=== PATIENT | female | born 1950 | race Caucasian/White ===

== ENCOUNTER 2016-08-06 16:00 | Inpatient (IN) | payer MEDICARE, MEDICAID ==
[~2016-08-06] VITALS: Ht 162.6 cm; Wt 119.1 kg
[2016-08-06] VITALS (10 sets, daily range): BP systolic 75–194; RESP 18–24; TEMP 98.2; BMI 47.5
[2016-08-06] MEDS ORDERED: PHARMACY TO DOSE VANCOMYCIN IV SCH (20:10)
[2016-08-06] MEDS ORDERED: PHARMACY TO DOSE ZOSYN IV SCH (20:10)
[2016-08-06] MEDS ORDERED: **NOTE TO NURSE XX SCH (20:36)
[2016-08-06] MEDS ORDERED: VANCOMYCIN 2,500 MG in SODIUM CHLORIDE 0.9% 500 ML IV ONE (21:35)
[2016-08-06] MEDS ORDERED: PIPERACIL/TAZO 3.375GM/50ML 50 ML IV ONE (21:35)
[2016-08-06] MEDS ORDERED: PROPOFOL 100 ML 100 ML IV PRN ×2 (21:45→23:25)
[2016-08-06] MEDS ORDERED: ACETAMINOPHEN 650 MG SUPP RECTAL PRN (23:25)
[2016-08-06] MEDS ORDERED: GLUCAGON 1 MG VIAL IM PRN (23:25)
[2016-08-07] VITALS (39 sets, daily range): BP systolic 64–207; RESP 18–27; TEMP 98.1–98.9; Ht 162.6 cm; Wt 119.1 kg
[2016-08-07] MEDS ORDERED: PIPERACIL/TAZO 2.25GM/50ML 50 ML IV SCH (08:00)
[2016-08-07] MEDS: PIPERACIL/TAZO 2.25GM/50ML 50 ML IV SCH ×2 (08:55→21:08)
[2016-08-07] MEDS: DEXTROSE 50% SYRINGE 50 ML IV PRN ×3 (09:00→12:44)
[2016-08-07] MEDS ORDERED: DUONEB INH PRN (10:15)
[2016-08-07] MEDS ORDERED: SODIUM CHLORIDE 0.9% 1,000 ML IV SCH (12:05)
[2016-08-07] MEDS: DEXTROSE 5% 1,000 ML IV SCH (13:16)
[2016-08-07] MEDS: MICONAZOLE 2% PWD TOPICAL SCH ×2 (14:52→21:09)
[2016-08-07] MEDS: NOREPINEPHRINE 16 MG in DEXTROSE 5% 234 ML IV SCH (19:37)
[2016-08-07] MEDS: ACETAMINOPHEN 650 MG/20.3 ML UDC NG PRN (21:14)
[2016-08-08] VITALS (37 sets, daily range): BP systolic 85–138; RESP 18–37; TEMP 97.5–99.9
[2016-08-08] MEDS: DEXTROSE 5% 1,000 ML IV SCH (06:20)
[2016-08-08] MEDS: PIPERACIL/TAZO 2.25GM/50ML 50 ML IV SCH ×2 (08:49→19:16)
[2016-08-08] MEDS: MICONAZOLE 2% PWD TOPICAL SCH ×2 (08:54→21:27)
[2016-08-08] MEDS ORDERED: POTASSIUM PHOSPHATE 30 MMOL in SODIUM CHLORIDE 0.9% 250 ML IV ONE (10:40)
[2016-08-08] MEDS ORDERED: MISSING DOSE XX ONE (14:35)
[2016-08-09] VITALS (66 sets, daily range): BP systolic 68–148; RESP 17–39; TEMP 97.6–99.4
[2016-08-09] MEDS: DEXTROSE 5% 1,000 ML IV SCH (04:16)
[2016-08-09] MEDS: PIPERACIL/TAZO 2.25GM/50ML 50 ML IV SCH ×2 (07:58→20:14)
[2016-08-09] MEDS: MICONAZOLE 2% PWD TOPICAL SCH ×2 (08:00→20:17)
[2016-08-09] MEDS ORDERED: PHARMACY TO DOSE XX SCH (09:50)
[2016-08-09] MEDS ORDERED: PHARMACY TO DOSE LEVAQUIN IV SCH (09:50)
[2016-08-09] MEDS ORDERED: LEVOFLOXACIN 750 MG/150 ML 150 ML IV STA (10:51)
[2016-08-09] MEDS: TOBRAMYCIN 300 MG INH SCH ×2 (12:38→18:56)
[2016-08-09] MEDS: LINEZOLID 600 MG/300 ML 300 ML IV SCH ×2 (13:55→22:01)
[2016-08-09] MEDS ORDERED: SODIUM CHLORIDE 0.9% IV ONE (14:30)
[2016-08-09] MEDS ORDERED: MINOCYCLINE HCL IV ONE (14:30)
[2016-08-09] MEDS ORDERED: MISSING DOSE XX ONE (17:45)
[2016-08-09] MEDS: NOREPINEPHRINE 16 MG in DEXTROSE 5% 234 ML IV SCH (18:19)
[2016-08-09] MEDS: MINOCYCLINE HCL IV SCH (20:58)
[2016-08-09] MEDS: SODIUM CHLORIDE 0.9% IV SCH (20:58)
[2016-08-10] VITALS (101 sets, daily range): BP systolic 54–125; RESP 13–33; TEMP 96.4–97.8
[2016-08-10] MEDS: DEXTROSE 5% 1,000 ML IV SCH (05:11)
[2016-08-10] MEDS: TOBRAMYCIN 300 MG INH SCH ×2 (06:38→18:24)
[2016-08-10] MEDS ORDERED: METRONIDAZOLE 250 MG 500 MG in SODIUM CHLORIDE 0.9% 100 ML IV SCH (08:00)
[2016-08-10] MEDS: MICONAZOLE 2% PWD TOPICAL SCH ×2 (08:17→22:32)
[2016-08-10] MEDS ORDERED: MISSING DOSE XX ONE ×2 (08:20→17:20)
[2016-08-10] MEDS: PIPERACIL/TAZO 2.25GM/50ML 50 ML IV SCH ×2 (09:25→20:36)
[2016-08-10] MEDS: SODIUM CHLORIDE 0.9% IV SCH (10:29)
[2016-08-10] MEDS: MINOCYCLINE HCL IV SCH (10:29)
[2016-08-10] MEDS: DULoxetine 30 MG CAP PO SCH (10:31)
[2016-08-10] MEDS: QUEtiapine 25 MG TAB PO SCH ×2 (10:31→20:39)
[2016-08-10] MEDS: LINEZOLID 600 MG/300 ML 300 ML IV SCH ×2 (11:57→20:59)
[2016-08-10] MEDS ORDERED: PHARMACY TO DOSE BACTRIM IV IV SCH (15:25)
[2016-08-10] MEDS: METRONIDAZOLE 500 MG TAB PO SCH ×2 (17:23→20:33)
[2016-08-10] MEDS: TRIMETH IV SCH (18:21)
[2016-08-10] MEDS: DEXTROSE 5% IV SCH (18:21)
[2016-08-10] MEDS: SULFAMETH IV SCH (18:21)
[2016-08-10] MEDS: ACETAMINOPHEN 650 MG/20.3 ML UDC NG PRN (22:29)
[2016-08-11] VITALS (47 sets, daily range): BP systolic 70–122; RESP 14–27; TEMP 96.9–97.7
[2016-08-11] MEDS: SULFAMETH IV SCH ×2 (00:31→08:31)
[2016-08-11] MEDS: DEXTROSE 5% IV SCH ×2 (00:31→08:31)
[2016-08-11] MEDS: TRIMETH IV SCH ×2 (00:31→08:31)
[2016-08-11] MEDS: DEXTROSE 5% 1,000 ML IV SCH (06:27)
[2016-08-11] MEDS: TOBRAMYCIN 300 MG INH SCH ×2 (06:45→19:25)
[2016-08-11] MEDS: PIPERACIL/TAZO 2.25GM/50ML 50 ML IV SCH (08:28)
[2016-08-11] MEDS: METRONIDAZOLE 500 MG TAB PO SCH ×3 (08:29→21:12)
[2016-08-11] MEDS: DULoxetine 30 MG CAP PO SCH (08:29)
[2016-08-11] MEDS: MICONAZOLE 2% PWD TOPICAL SCH ×2 (08:30→20:29)
[2016-08-11] MEDS: QUEtiapine 25 MG TAB PO SCH ×2 (08:30→21:12)
[2016-08-11] MEDS ORDERED: SODIUM PHOSPHATE 30 MM in SODIUM CHLORIDE 0.9% 250 ML IV ONE (08:35)
[2016-08-11] MEDS ORDERED: LINEZOLID 600 MG/300 ML 300 ML IV SCH (10:00)
[2016-08-11] MEDS ORDERED: GENTAMICIN 80MG/2ML VIAL IV ONE (11:20)
[2016-08-11] MEDS: VANCOMYCIN SUSP 250 MG/5 ML UDC PO SCH ×3 (12:01→21:12)
[2016-08-11] MEDS ORDERED: GENTAMICIN 600 MG in SODIUM CHLORIDE 0.9% 100 ML IV ONE (12:15)
[2016-08-11] MEDS ORDERED: GENTAMICIN 400 MG in SODIUM CHLORIDE 0.9% 100 ML IV ONE (12:20)
[2016-08-11] MEDS: ACETAMINOPHEN 650 MG/20.3 ML UDC NG PRN (16:43)
[2016-08-11] MEDS: ONDANSETRON 4 MG VIAL IV PUSH PRN (16:53)
[2016-08-11] MEDS ORDERED: LEVOFLOXACIN 500 MG/100 ML 100 ML IV SCH (21:00)
[2016-08-12] VITALS (26 sets, daily range): BP systolic 83–136; RESP 17–26; TEMP 96.7–98
[2016-08-12] MEDS: TOBRAMYCIN 300 MG INH SCH ×2 (06:26→19:00)
[2016-08-12] MEDS: DULoxetine 30 MG CAP PO SCH (08:19)
[2016-08-12] MEDS: QUEtiapine 25 MG TAB PO SCH ×2 (08:19→20:29)
[2016-08-12] MEDS: METRONIDAZOLE 500 MG TAB PO SCH ×4 (08:19→20:29)
[2016-08-12] MEDS: VANCOMYCIN SUSP 250 MG/5 ML UDC PO SCH ×4 (08:20→20:29)
[2016-08-12] MEDS: DEXTROSE 5% 1,000 ML IV SCH (08:20)
[2016-08-12] MEDS: MICONAZOLE 2% PWD TOPICAL SCH ×2 (08:24→20:31)
[2016-08-12] MEDS: ACETAMINOPHEN 650 MG/20.3 ML UDC NG PRN (08:24)
[2016-08-12] MEDS: ONDANSETRON 4 MG VIAL IV PUSH PRN ×3 (09:14→22:10)
[2016-08-13] VITALS (29 sets, daily range): BP systolic 89–155; RESP 16–31; TEMP 97.3–98
[2016-08-13] MEDS: ACETAMINOPHEN 650 MG/20.3 ML UDC NG PRN ×2 (00:29→16:02)
[2016-08-13] MEDS: ONDANSETRON 4 MG VIAL IV PUSH PRN ×4 (03:25→20:51)
[2016-08-13] MEDS: DEXTROSE 5% 1,000 ML IV SCH (06:38)
[2016-08-13] MEDS: TOBRAMYCIN 300 MG INH SCH ×2 (07:05→19:53)
[2016-08-13] MEDS ORDERED: MISSING DOSE XX ONE ×2 (08:10→20:25)
[2016-08-13] MEDS: MICONAZOLE 2% PWD TOPICAL SCH ×2 (09:33→20:52)
[2016-08-13] MEDS: SCOPOLAMINE PATCH TRANSDERM SCH (10:30)
[2016-08-13] MEDS: DEXAMETHASONE 4 MG/ML VIAL IV SCH ×2 (10:30→20:15)
[2016-08-13] MEDS: VANCOMYCIN SUSP 250 MG/5 ML UDC PO SCH ×3 (10:59→20:15)
[2016-08-13] MEDS: METRONIDAZOLE 500 MG TAB PO SCH ×3 (11:00→20:15)
[2016-08-13] MEDS: DULoxetine 30 MG CAP PO SCH (11:00)
[2016-08-13] MEDS: QUEtiapine 25 MG TAB PO SCH ×2 (11:00→20:15)
[2016-08-13] MEDS ORDERED: PHARMACY TO DOSE GENTAMICIN IV SCH (11:35)
[2016-08-13] MEDS ORDERED: PHARMACY TO DOSE TOBRAMYCIN IV SCH (12:50)
[2016-08-13] MEDS ORDERED: PHARMACY TO DOSE BACTRIM IV IV SCH (12:50)
[2016-08-13] MEDS ORDERED: DEXTROSE 5% 1,000 ML IV PRN (14:05)
[2016-08-13] MEDS: DUONEB INH SCH ×3 (14:30→22:34)
[2016-08-13] MEDS: NEB-NACL 3% 4 ML NEBU INH SCH ×2 (19:53→22:34)
[2016-08-13] MEDS ORDERED: TMP IV SCH (21:00)
[2016-08-13] MEDS: TRIMETH IV SCH (21:00)
[2016-08-13] MEDS: DEXTROSE 5% IV SCH (21:00)
[2016-08-13] MEDS: SULFAMETH IV SCH (21:00)
[2016-08-13] MEDS ORDERED: SMX IV SCH (21:00)
[2016-08-14] VITALS (25 sets, daily range): BP systolic 88–160; RESP 15–44; TEMP 96.7–98.4
[2016-08-14] MEDS: DUONEB INH SCH ×6 (02:01→23:38)
[2016-08-14] MEDS: ONDANSETRON 4 MG VIAL IV PUSH PRN ×2 (05:40→08:26)
[2016-08-14] MEDS: NEB-NACL 3% 4 ML NEBU INH SCH ×4 (07:35→23:38)
[2016-08-14] MEDS: TOBRAMYCIN 300 MG INH SCH ×2 (07:35→19:15)
[2016-08-14] MEDS: VANCOMYCIN SUSP 250 MG/5 ML UDC PO SCH ×3 (08:25→22:35)
[2016-08-14] MEDS: DULoxetine 30 MG CAP PO SCH (08:26)
[2016-08-14] MEDS: METRONIDAZOLE 500 MG TAB PO SCH (08:26)
[2016-08-14] MEDS: DEXAMETHASONE 4 MG/ML VIAL IV SCH ×2 (08:26→19:44)
[2016-08-14] MEDS: QUEtiapine 25 MG TAB PO SCH ×3 (08:27→22:35)
[2016-08-14] MEDS: MICONAZOLE 2% PWD TOPICAL SCH ×2 (08:41→22:50)
[2016-08-14] MEDS ORDERED: ALU/MAG/SIM 30 ML UDC PO PRN (08:55)
[2016-08-14] MEDS: PANTOPRAZOLE 40 MG VIAL IV SCH (09:48)
[2016-08-14] MEDS: LORAZEPAM 0.5 MG TAB PO SCH ×2 (13:10→22:34)
[2016-08-14] MEDS ORDERED: MISSING DOSE XX ONE (22:20)
[2016-08-14] MEDS: ACETAMINOPHEN 650 MG/20.3 ML UDC NG PRN (22:35)
[2016-08-14] MEDS: SULFAMETH IV SCH (22:47)
[2016-08-14] MEDS: DEXTROSE 5% IV SCH (22:47)
[2016-08-14] MEDS: TRIMETH IV SCH (22:47)
[2016-08-15] VITALS (68 sets, daily range): BP systolic 41–123; RESP 13–37; TEMP 96–97.3
[2016-08-15] MEDS: DUONEB INH SCH ×5 (02:47→19:09)
[2016-08-15] MEDS: LORAZEPAM 0.5 MG TAB PO SCH ×3 (05:38→20:03)
[2016-08-15] MEDS: TOBRAMYCIN 300 MG INH SCH ×2 (07:42→19:10)
[2016-08-15] MEDS: NEB-NACL 3% 4 ML NEBU INH SCH ×3 (07:42→19:09)
[2016-08-15] MEDS: DEXAMETHASONE 4 MG/ML VIAL IV SCH ×2 (08:00→08:12)
[2016-08-15] MEDS: VANCOMYCIN SUSP 250 MG/5 ML UDC PO SCH ×3 (08:13→20:04)
[2016-08-15] MEDS ORDERED: MISSING DOSE XX ONE ×3 (08:30→20:45)
[2016-08-15] MEDS: NOREPINEPHRINE 16 MG in DEXTROSE 5% 234 ML IV SCH (08:48)
[2016-08-15] MEDS: QUEtiapine 25 MG TAB PO SCH ×2 (09:00→20:03)
[2016-08-15] MEDS: MICONAZOLE 2% PWD TOPICAL SCH ×2 (09:00→21:32)
[2016-08-15] MEDS ORDERED: PHARMACY TO DOSE XX SCH (10:00)
[2016-08-15] MEDS ORDERED: PHARMACY TO DOSE BACTRIM IV IV SCH (12:40)
[2016-08-15] MEDS: PANTOPRAZOLE 40 MG VIAL IV SCH (13:01)
[2016-08-15] MEDS: DULoxetine 30 MG CAP PO SCH (13:03)
[2016-08-15] MEDS ORDERED: COLISTIMETHATE IV ONE ×2 (16:00)
[2016-08-15] MEDS ORDERED: SODIUM CHLORIDE 0.9% IV ONE ×2 (16:00)
[2016-08-15] MEDS ORDERED: SODIUM CHLORIDE 0.9% IV SCH (16:00)
[2016-08-15] MEDS ORDERED: COLISTIMETHATE IV SCH (16:00)
[2016-08-15] MEDS: TRIMETH IV SCH (21:31)
[2016-08-15] MEDS: SULFAMETH IV SCH (21:31)
[2016-08-15] MEDS: DEXTROSE 5% IV SCH (21:31)
[2016-08-15] MEDS ORDERED: hePARIN 1,000 UNITS/ML (PORCINE) 10 ML ONE (21:46)
[2016-08-15] MEDS: ONDANSETRON 4 MG VIAL IV PUSH PRN (22:11)
[2016-08-15] MEDS ORDERED: SODIUM BICARB 8.4% 150 ML in DEXTROSE 5% 1,000 ML IV SCH (23:35)
[2016-08-16] VITALS (47 sets, daily range): BP systolic 75–124; RESP 18–37; TEMP 96.3–97.9
[2016-08-16] MEDS: NEB-NACL 3% 4 ML NEBU INH SCH ×5 (00:15→23:27)
[2016-08-16] MEDS: DUONEB INH SCH ×7 (00:15→23:27)
[2016-08-16] MEDS: CHLORHEXIDINE 0.12% ORAL CARE FOR VENT PATIENTS 15 ML SWAB SCH ×2 (00:24→12:02)
[2016-08-16] MEDS: VANCOMYCIN SUSP 250 MG/5 ML UDC PO SCH ×4 (01:00→18:38)
[2016-08-16] MEDS: ONDANSETRON 4 MG VIAL IV PUSH PRN ×3 (03:34→23:54)
[2016-08-16] MEDS: LORAZEPAM 0.5 MG TAB PO SCH ×3 (04:55→20:55)
[2016-08-16] MEDS: TOBRAMYCIN 300 MG INH SCH ×2 (06:54→19:20)
[2016-08-16] MEDS: PANTOPRAZOLE 40 MG VIAL IV SCH (08:42)
[2016-08-16] MEDS: QUEtiapine 25 MG TAB PO SCH ×2 (08:43→21:00)
[2016-08-16] MEDS: DULoxetine 30 MG CAP PO SCH (08:44)
[2016-08-16] MEDS: MICONAZOLE 2% PWD TOPICAL SCH ×2 (08:45→21:40)
[2016-08-16] MEDS: SCOPOLAMINE PATCH TRANSDERM SCH (08:46)
[2016-08-16] MEDS: REMOVE SCOPALAMINE PATCH XX SCH (08:47)
[2016-08-16] MEDS: FAMOTIDINE 10 MG TAB PO SCH (12:01)
[2016-08-16] MEDS: SODIUM CHLORIDE 0.9% IV SCH (15:13)
[2016-08-16] MEDS: COLISTIMETHATE IV SCH (15:13)
[2016-08-16] MEDS ORDERED: MISSING DOSE XX ONE (20:30)
[2016-08-16] MEDS: TRIMETH IV SCH (21:39)
[2016-08-16] MEDS: DEXTROSE 5% IV SCH (21:39)
[2016-08-16] MEDS: SULFAMETH IV SCH (21:39)
[2016-08-16] MEDS: DEXTROSE 50% SYRINGE 50 ML IV PRN (21:48)
[2016-08-17] VITALS (75 sets, daily range): BP systolic 47–128; RESP 16–39; TEMP 96–97.6
[2016-08-17] MEDS: VANCOMYCIN SUSP 250 MG/5 ML UDC PO SCH ×4 (01:00→18:08)
[2016-08-17] MEDS: DUONEB INH SCH ×6 (02:30→22:35)
[2016-08-17] MEDS: LORAZEPAM 0.5 MG TAB PO SCH ×3 (04:55→20:55)
[2016-08-17] MEDS ORDERED: PANTOPRAZOLE 40 MG TAB PO SCH (07:00)
[2016-08-17] MEDS: TOBRAMYCIN 300 MG INH SCH ×2 (07:00→18:56)
[2016-08-17] MEDS: NEB-NACL 3% 4 ML NEBU INH SCH ×4 (07:27→22:37)
[2016-08-17] MEDS: DEXTROSE 50% SYRINGE 50 ML IV PRN (07:59)
[2016-08-17] MEDS ORDERED: LINEZOLID INJ IV SCH (08:00)
[2016-08-17] MEDS: QUEtiapine 25 MG TAB PO SCH ×2 (08:02→20:58)
[2016-08-17] MEDS: DULoxetine 30 MG CAP PO SCH (08:02)
[2016-08-17] MEDS: FAMOTIDINE 10 MG TAB PO SCH (08:02)
[2016-08-17] MEDS: MICONAZOLE 2% PWD TOPICAL SCH ×2 (08:05→21:25)
[2016-08-17] MEDS: LINEZOLID 600 MG/300 ML 300 ML IV SCH ×2 (08:40→19:19)
[2016-08-17] MEDS: ACETAMINOPHEN 650 MG/20.3 ML UDC NG PRN (09:34)
[2016-08-17] MEDS: METOCLOPRAMIDE 10 MG TAB PO SCH ×3 (10:06→20:58)
[2016-08-17] MEDS: CHLORHEXIDINE 0.12% ORAL CARE FOR VENT PATIENTS 15 ML SWAB SCH ×2 (12:01)
[2016-08-17] MEDS ORDERED: MISSING DOSE XX ONE ×4 (12:45→21:05)
[2016-08-17] MEDS: SODIUM CHLORIDE 0.9% IV SCH (16:16)
[2016-08-17] MEDS: COLISTIMETHATE IV SCH (16:16)
[2016-08-17] MEDS: NOREPINEPHRINE 16 MG in DEXTROSE 5% 234 ML IV SCH (21:02)
[2016-08-17] MEDS: DEXTROSE 5% IV SCH (21:23)
[2016-08-17] MEDS: TRIMETH IV SCH (21:23)
[2016-08-17] MEDS: SULFAMETH IV SCH (21:23)
[2016-08-18] VITALS (86 sets, daily range): BP systolic 62–147; RESP 16–39; TEMP 96.2–97.9
[2016-08-18] MEDS: VANCOMYCIN SUSP 250 MG/5 ML UDC PO SCH ×4 (00:08→18:19)
[2016-08-18] MEDS: DUONEB INH SCH ×6 (03:14→23:12)
[2016-08-18] MEDS: LORAZEPAM 0.5 MG TAB PO SCH ×3 (04:55→20:59)
[2016-08-18] MEDS: NEB-NACL 3% 4 ML NEBU INH SCH ×4 (06:34→23:12)
[2016-08-18] MEDS: TOBRAMYCIN 300 MG INH SCH ×2 (06:34→20:00)
[2016-08-18] MEDS: ACETAMINOPHEN 650 MG/20.3 ML UDC NG PRN (07:04)
[2016-08-18] MEDS: LINEZOLID 600 MG/300 ML 300 ML IV SCH ×2 (08:00→20:57)
[2016-08-18] MEDS ORDERED: VASOPRESSIN 40 UNITS in SODIUM CHLORIDE 0.9% 38 ML IV SCH (09:00)
[2016-08-18] MEDS: DULoxetine 30 MG CAP PO SCH (09:11)
[2016-08-18] MEDS: FAMOTIDINE 10 MG TAB PO SCH (09:12)
[2016-08-18] MEDS: METOCLOPRAMIDE 10 MG TAB PO SCH ×3 (09:12→20:59)
[2016-08-18] MEDS: QUEtiapine 25 MG TAB PO SCH ×2 (09:13→20:59)
[2016-08-18] MEDS: MICONAZOLE 2% PWD TOPICAL SCH ×2 (09:16→20:59)
[2016-08-18] MEDS ORDERED: MISSING DOSE XX ONE ×3 (12:20→21:20)
[2016-08-18] MEDS: CHLORHEXIDINE 0.12% ORAL CARE FOR VENT PATIENTS 15 ML SWAB SCH ×2 (12:24)
[2016-08-18] MEDS: COLISTIMETHATE IV SCH (16:00)
[2016-08-18] MEDS: SODIUM CHLORIDE 0.9% IV SCH (16:00)
[2016-08-18] MEDS: SULFAMETH IV SCH (22:34)
[2016-08-18] MEDS: DEXTROSE 5% IV SCH (22:34)
[2016-08-18] MEDS: TRIMETH IV SCH (22:34)
[2016-08-19] VITALS (56 sets, daily range): BP systolic 61–121; RESP 16–30; TEMP 95.3–96.9
[2016-08-19] MEDS: CHLORHEXIDINE 0.12% ORAL CARE FOR VENT PATIENTS 15 ML SWAB SCH ×3 (00:01→23:34)
[2016-08-19] MEDS: VANCOMYCIN SUSP 250 MG/5 ML UDC PO SCH ×4 (00:16→19:26)
[2016-08-19] MEDS: DUONEB INH SCH ×5 (02:06→19:50)
[2016-08-19] MEDS: LORAZEPAM 0.5 MG TAB PO SCH ×3 (05:07→21:13)
[2016-08-19] MEDS: SODIUM CHLORIDE 0.9% FLUSH BAG 500 ML IV SCH (05:15)
[2016-08-19] MEDS: TOBRAMYCIN 300 MG INH SCH ×2 (06:51→19:50)
[2016-08-19] MEDS: NEB-NACL 3% 4 ML NEBU INH SCH ×3 (06:51→19:50)
[2016-08-19] MEDS ORDERED: EPOETIN 40,000 UNIT VIAL SUBQ ONE (08:00)
[2016-08-19] MEDS ORDERED: IRON SUCROSE COMPLEX 500 MG in SODIUM CHLORIDE 0.9% 250 ML IV ONE (08:00)
[2016-08-19] MEDS: SCOPOLAMINE PATCH TRANSDERM SCH (08:31)
[2016-08-19] MEDS: MICONAZOLE 2% PWD TOPICAL SCH ×2 (08:32→21:14)
[2016-08-19] MEDS: QUEtiapine 25 MG TAB PO SCH ×2 (08:32→21:13)
[2016-08-19] MEDS: METOCLOPRAMIDE 10 MG TAB PO SCH ×3 (08:32→21:13)
[2016-08-19] MEDS: FAMOTIDINE 10 MG TAB PO SCH (08:32)
[2016-08-19] MEDS: DULoxetine 30 MG CAP PO SCH (08:32)
[2016-08-19] MEDS: LINEZOLID 600 MG/300 ML 300 ML IV SCH ×2 (08:35→19:26)
[2016-08-19] MEDS: REMOVE SCOPALAMINE PATCH XX SCH (09:18)
[2016-08-19] MEDS: DEXTROSE 50% SYRINGE 50 ML IV PRN ×2 (10:31→21:13)
[2016-08-19] MEDS: ACETAMINOPHEN 650 MG/20.3 ML UDC NG PRN (10:39)
[2016-08-19] MEDS: COLISTIMETHATE IV SCH (14:09)
[2016-08-19] MEDS: SODIUM CHLORIDE 0.9% IV SCH (14:09)
[2016-08-19] MEDS: DEXTROSE 10% 1,000 ML IV SCH (16:27)
[2016-08-19] MEDS ORDERED: MISSING DOSE XX ONE (21:05)
[2016-08-19] MEDS: TRIMETH IV SCH (21:22)
[2016-08-19] MEDS: SULFAMETH IV SCH (21:22)
[2016-08-19] MEDS: DEXTROSE 5% IV SCH (21:22)
[2016-08-20] VITALS (69 sets, daily range): BP systolic 58–126; RESP 13–31; TEMP 95.4–99.6
[2016-08-20] MEDS: NEB-NACL 3% 4 ML NEBU INH SCH ×5 (00:22→23:30)
[2016-08-20] MEDS: DUONEB INH SCH ×7 (00:22→23:29)
[2016-08-20] MEDS: VANCOMYCIN SUSP 250 MG/5 ML UDC PO SCH ×4 (01:42→18:09)
[2016-08-20] MEDS: DEXTROSE 50% SYRINGE 50 ML IV PRN ×3 (04:17→16:57)
[2016-08-20] MEDS: LORAZEPAM 0.5 MG TAB PO SCH ×3 (05:03→20:55)
[2016-08-20] MEDS: SODIUM CHLORIDE 0.9% FLUSH BAG 500 ML IV SCH (05:04)
[2016-08-20] MEDS ORDERED: DEXTROSE 5% SALINE 0.9% 1,000 ML IV SCH (05:55)
[2016-08-20] MEDS ORDERED: SODIUM CHLORIDE 0.9% 1,000 ML IV SCH (06:00)
[2016-08-20] MEDS: TOBRAMYCIN 300 MG INH SCH ×2 (06:11→18:19)
[2016-08-20] MEDS: ALBUMIN HUMAN 25GM (25%) 100 ML IV SCH ×2 (06:28→08:00)
[2016-08-20] MEDS ORDERED: MISSING DOSE XX ONE ×2 (07:35→16:25)
[2016-08-20] MEDS: LINEZOLID 600 MG/300 ML 300 ML IV SCH ×2 (08:37→20:06)
[2016-08-20] MEDS: MICONAZOLE 2% PWD TOPICAL SCH (08:38)
[2016-08-20] MEDS: QUEtiapine 25 MG TAB PO SCH ×2 (08:38→21:00)
[2016-08-20] MEDS: METOCLOPRAMIDE 10 MG TAB PO SCH ×3 (08:39→21:00)
[2016-08-20] MEDS: DULoxetine 30 MG CAP PO SCH (08:39)
[2016-08-20] MEDS: FAMOTIDINE 10 MG TAB PO SCH (08:39)
[2016-08-20] MEDS: NOREPINEPHRINE 16 MG in DEXTROSE 5% 234 ML IV SCH (08:40)
[2016-08-20] MEDS: ONDANSETRON 4 MG VIAL IV PUSH PRN ×2 (10:57→16:44)
[2016-08-20] MEDS: CHLORHEXIDINE 0.12% ORAL CARE FOR VENT PATIENTS 15 ML SWAB SCH (12:55)
[2016-08-20] MEDS: SODIUM CHLORIDE 0.9% IV SCH (16:44)
[2016-08-20] MEDS: COLISTIMETHATE IV SCH (16:44)
[2016-08-20] MEDS: SULFAMETH IV SCH (21:41)
[2016-08-20] MEDS: TRIMETH IV SCH (21:41)
[2016-08-20] MEDS: DEXTROSE 10% 1,000 ML IV SCH (21:41)
[2016-08-20] MEDS: DEXTROSE 5% IV SCH (21:41)
[2016-08-20] MEDS ORDERED: hePARIN 1,000 UNITS/ML (PORCINE) 10 ML ONE (22:49)
[2016-08-21] VITALS (53 sets, daily range): BP systolic 69–161; RESP 15–34; TEMP 97.6–98.1
[2016-08-21] MEDS: MICONAZOLE 2% PWD TOPICAL SCH ×3 (00:40→21:52)
[2016-08-21] MEDS: CHLORHEXIDINE 0.12% ORAL CARE FOR VENT PATIENTS 15 ML SWAB SCH ×2 (00:41→16:53)
[2016-08-21] MEDS: VANCOMYCIN SUSP 250 MG/5 ML UDC PO SCH ×4 (01:00→16:27)
[2016-08-21] MEDS: DUONEB INH SCH ×6 (02:13→22:29)
[2016-08-21] MEDS: LORAZEPAM 0.5 MG TAB PO SCH ×3 (04:55→20:55)
[2016-08-21] MEDS: SODIUM CHLORIDE 0.9% FLUSH BAG 500 ML IV SCH (06:00)
[2016-08-21] MEDS: TOBRAMYCIN 300 MG INH SCH ×2 (06:32→18:40)
[2016-08-21] MEDS: NEB-NACL 3% 4 ML NEBU INH SCH ×4 (06:32→22:29)
[2016-08-21] MEDS: FAMOTIDINE 10 MG TAB PO SCH (09:00)
[2016-08-21] MEDS: DULoxetine 30 MG CAP PO SCH (09:00)
[2016-08-21] MEDS: QUEtiapine 25 MG TAB PO SCH ×2 (09:00→21:00)
[2016-08-21] MEDS: METOCLOPRAMIDE 10 MG TAB PO SCH ×3 (09:00→21:00)
[2016-08-21] MEDS: LINEZOLID 600 MG/300 ML 300 ML IV SCH ×2 (09:38→20:04)
[2016-08-21] MEDS: EPOETIN 10,000 UNIT VIAL SUBQ SCH (09:39)
[2016-08-21] MEDS: SODIUM CHLORIDE IV SCH ×2 (09:50)
[2016-08-21] MEDS: DEXTROSE 10% IV SCH ×2 (09:50)
[2016-08-21] MEDS: MIDODRINE 10 MG TAB PO SCH ×2 (11:00→15:41)
[2016-08-21] MEDS: SODIUM CHLORIDE 0.9% IV SCH (16:51)
[2016-08-21] MEDS: COLISTIMETHATE IV SCH (16:51)
[2016-08-21] MEDS: DEXTROSE 5% IV SCH (21:44)
[2016-08-21] MEDS: SULFAMETH IV SCH (21:44)
[2016-08-21] MEDS: TRIMETH IV SCH (21:44)
[2016-08-21] MEDS ORDERED: DEXTROSE 50% 50 ML ONE (21:47)
[2016-08-21] MEDS: DEXTROSE 50% SYRINGE 50 ML IV PRN (21:47)
[2016-08-22] VITALS (80 sets, daily range): BP systolic 33–127; RESP 14–36; TEMP 97–99.6
[2016-08-22] MEDS: VANCOMYCIN SUSP 250 MG/5 ML UDC PO SCH ×4 (01:00→19:51)
[2016-08-22] MEDS: CHLORHEXIDINE 0.12% ORAL CARE FOR VENT PATIENTS 15 ML SWAB SCH ×3 (02:12→23:33)
[2016-08-22] MEDS: DUONEB INH SCH ×6 (02:21→23:10)
[2016-08-22] MEDS: LORAZEPAM 0.5 MG TAB PO SCH ×3 (04:55→21:20)
[2016-08-22] MEDS ORDERED: MISSING DOSE XX ONE ×3 (05:45→14:30)
[2016-08-22] MEDS: SODIUM CHLORIDE 0.9% FLUSH BAG 500 ML IV SCH (05:59)
[2016-08-22] MEDS ORDERED: LORAZEPAM 2 MG/ML VIAL IV PRN (06:05)
[2016-08-22] MEDS: SODIUM CHLORIDE IV SCH ×2 (06:16)
[2016-08-22] MEDS: DEXTROSE 10% IV SCH ×2 (06:16)
[2016-08-22] MEDS: MIDODRINE 10 MG TAB PO SCH ×3 (07:00→16:00)
[2016-08-22] MEDS: NEB-NACL 3% 4 ML NEBU INH SCH ×4 (07:08→23:10)
[2016-08-22] MEDS: TOBRAMYCIN 300 MG INH SCH ×2 (07:08→19:33)
[2016-08-22] MEDS: DEXTROSE 50% SYRINGE 50 ML IV PRN ×2 (08:39→18:39)
[2016-08-22] MEDS: LINEZOLID 600 MG/300 ML 300 ML IV SCH ×2 (08:40→19:52)
[2016-08-22] MEDS: SCOPOLAMINE PATCH TRANSDERM SCH (08:41)
[2016-08-22] MEDS: REMOVE SCOPALAMINE PATCH XX SCH (09:00)
[2016-08-22] MEDS: FAMOTIDINE 10 MG TAB PO SCH (09:00)
[2016-08-22] MEDS: DULoxetine 30 MG CAP PO SCH (09:00)
[2016-08-22] MEDS: METOCLOPRAMIDE 10 MG TAB PO SCH ×3 (09:00→23:21)
[2016-08-22] MEDS: QUEtiapine 25 MG TAB PO SCH ×2 (09:00→21:00)
[2016-08-22] MEDS: ONDANSETRON 4 MG VIAL IV PUSH PRN (11:12)
[2016-08-22] MEDS: MICONAZOLE 2% PWD TOPICAL SCH ×2 (11:13→23:21)
[2016-08-22] MEDS: NOREPINEPHRINE 16 MG in DEXTROSE 5% 234 ML IV SCH (14:54)
[2016-08-22] MEDS ORDERED: hePARIN 1,000 UNITS/ML (PORCINE) 10 ML ONE ×2 (19:26→19:27)
[2016-08-22] MEDS: SODIUM CHLORIDE 0.9% IV SCH (19:52)
[2016-08-22] MEDS: COLISTIMETHATE IV SCH (19:52)
[2016-08-22] MEDS: DEXTROSE 5% IV SCH (21:19)
[2016-08-22] MEDS: TRIMETH IV SCH (21:19)
[2016-08-22] MEDS: SULFAMETH IV SCH (21:19)
[2016-08-23] VITALS (79 sets, daily range): BP systolic 68–108; RESP 16–34; TEMP 97.9–98.8
[2016-08-23] MEDS: VANCOMYCIN SUSP 250 MG/5 ML UDC PO SCH ×3 (00:59→12:32)
[2016-08-23] MEDS: DUONEB INH SCH ×4 (02:54→14:12)
[2016-08-23] MEDS: LORAZEPAM 0.5 MG TAB PO SCH ×2 (04:55→12:32)
[2016-08-23] MEDS: SODIUM CHLORIDE 0.9% FLUSH BAG 500 ML IV SCH (06:00)
[2016-08-23] MEDS: DEXTROSE 10% IV SCH ×2 (06:06)
[2016-08-23] MEDS: SODIUM CHLORIDE IV SCH ×2 (06:06)
[2016-08-23] MEDS ORDERED: POTASSIUM PHOSPHATE 45 MMOL in SODIUM CHLORIDE 0.9% 500 ML IV ONE (06:45)
[2016-08-23] MEDS: MIDODRINE 10 MG TAB PO SCH ×2 (07:00→11:00)
[2016-08-23] MEDS: NEB-NACL 3% 4 ML NEBU INH SCH ×2 (07:03→10:50)
[2016-08-23] MEDS: LINEZOLID 600 MG/300 ML 300 ML IV SCH (08:03)
[2016-08-23] MEDS: METOCLOPRAMIDE 10 MG TAB PO SCH (08:03)
[2016-08-23] MEDS: QUEtiapine 25 MG TAB PO SCH (08:04)
[2016-08-23] MEDS: FAMOTIDINE 10 MG TAB PO SCH (08:04)
[2016-08-23] MEDS: DULoxetine 30 MG CAP PO SCH (08:04)
[2016-08-23] MEDS: EPOETIN 10,000 UNIT VIAL SUBQ SCH (08:05)
[2016-08-23] MEDS: MICONAZOLE 2% PWD TOPICAL SCH (08:05)
[2016-08-23] MEDS: DEXTROSE 50% SYRINGE 50 ML IV PRN ×2 (08:16→12:46)
[2016-08-23] MEDS: CHLORHEXIDINE 0.12% ORAL CARE FOR VENT PATIENTS 15 ML SWAB SCH (12:43)
[2016-08-23] MEDS ORDERED: DILAUDID 1 MG/ML AMP IV PRN (13:10)
[2016-08-23] MEDS ORDERED: HYOSCYAMINE SULF 0.125 MG/ML DROPS PO PRN (13:10)
[2016-08-23] MEDS: LORAZEPAM 2 MG/ML VIAL IV PRN ×2 (18:02→20:28)
[2016-08-24] VITALS (7 sets, daily range): BP systolic 41–105; RESP 19–30; TEMP 96.7
[2016-08-24] MEDS: LORAZEPAM 2 MG/ML VIAL IV PRN (03:33)
== END 2016-08-24 04:01 | disposition expired | DRG 870 ==
LOC: ENRESERVDT → CANRESERV → ENRESERVTM → CCU 19:42 → ENPENDDIS 19:42
PROVIDERS: ADMIT Internal Medicine Nephrology; ATTEND Internal Medicine Nephrology
PROC: 0B9B8ZX Drainage of Left Lower Lobe Bronchus, Via Natural or Artificial Opening Endoscopic, Diagnostic (ICD-10-PCS; principal; 2016-08-07)
PROC: 03HY32Z Insertion of Monitoring Device into Upper Artery, Percutaneous Approach (ICD-10-PCS; 2016-08-07)
PROC: 4A133B1 Monitoring of Arterial Pressure, Peripheral, Percutaneous Approach (ICD-10-PCS; 2016-08-07)
PROC: 4A133J1 Monitoring of Arterial Pulse, Peripheral, Percutaneous Approach (ICD-10-PCS; 2016-08-07)
PROC: 5A1955Z Respiratory Ventilation, Greater than 96 Consecutive Hours (ICD-10-PCS; 2016-08-08)
PROC: 5A1D60Z (ICD-10-PCS; 2016-08-08)
CPT/HCPCS: 31622; 31720; 36600; 71010; 74000; 80053; 80069; 80170; 80202; 82803; 82947; 83735; 84100; 85007; 85025; 85027; 86704; 86706; 87040; 87071; 87077; 87088; 87102; 87116; 87181; 87186; 87205; 87206; 87340; 87493; 89051; 94002; 94003; 94640; 94799; 99233; 99291